=== PATIENT | male | born 1960 | race Caucasian/White ===

== ENCOUNTER 2023-12-29 13:05 | Outpatient (AMB) | payer MEDICARE, MEDICAID, SELFPAY ==
[2023-12-29 13:16] VITALS: BP 122/73; PULSE 109; RESP 16; O2SAT 97; BMI 32.6
--- NOTE | 2023-12-29 13:16 | A.OFFVIS_ITS ---
Intake Vital Signs 12/29/23 13:16 Height 5 ft 10 in Weight 227 lb BMI 32.6 BP 122/73 Blood Pressure Location Lt brachial Position Sitting Respiration 16 Pulse 109 H Pulse Source Pulse Oximeter Pulse Oximetry (%) 97 Oxygen Delivery Method Room Air Intake Visit Reasons: Bilateral lower extremity pain & neuropathy Allergies No Known Allergies Allergy (Verified 12/29/23 13:12) HPI HPI Comments History of Present Illness Details Reinaldo is a very pleasant 63-year-old male who presents the office today for evaluation management of his chronic painful bilateral diabetic peripheral neuropathy. He reports suffering with this pain for many years. He was diagnosed as diabetic in his 20s, currently insulin-dependent with an insulin pump. Most recent A1c was 7.4. He is followed by Dr. Antunez for endocrinology. Patient has podiatry that he sees for diabetic foot care on a routine basis. Pain burning, hot, painful, stinging to both feet starting at the toes and now traveling to the ankles. He reports he used to be on chronic opioids for this but has since weaned off. Currently taking duloxetine and Lyrica with minimal improvement of his symptoms. P Pain today is rated as an 8/10, constant throughout the day. In terms of muscle damage condition is described as aching, hot, burning, stabbing, sharp, tingling, pins and needles, shooting, dull, tiring, exhausting, shocking, numb, throbbing. Pain is negatively impacting patient's enjoyment of life, general activity, mood. Past medical history is significant for diabetic neuropathy, insulin-dependent diabetes with insulin pump, orthostatic hypotension, gastroparesis and major depression. Patient does report that he has difficulty with short-term memory, he is currently taking medications for his memory. He also reports having a tremor and is giving medications for Parkinson's but states that he has never been formally diagnosed with Parkinson's. Was told in the past that tremor and memory issues could be secondary to medication side effects. He has implantable device for monitoring his heart, denies pacemaker or defibrillator. Reports his cardiac monitoring device is MRI compatible. 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 nerve due to type 1 diabetes mellitus Polyneuropathy due to type 2 diabetes mellitus Gastroparesis Testicular hypofunction Multiple complications of type 1 diabetes mellitus Diabetic nephropathy Major depression in partial remission Orthostatic hypotension Type 1 diabetes mellitus with hypoglycemia without coma Polyneuropathy in diseases classified elsewhere Motion sickness Review of Systems Const All systems reviewed & are unremarkable except as noted in HPI and below Physical Exam Vital Signs: Last Vital Signs Pulse 109 H 12/29/23 13:16 Resp 16 12/29/23 13:16 BP 122/73 12/29/23 13:16 Pulse Ox 97 12/29/23 13:16 Oxygen Delivery Method Room Air 12/29/23 13:16 BMI result Body Mass Index 32.6 General: awake, alert, oriented. Answers questions appropriately. Fully engaged in examination. Skin: warm, dry, intact. Bilateral feet: Plantar calluses to great toes and heels. Skin intact without wounds, blisters, sores, lesions or rashes. HEENT: Normocephalic. Hearing intact. Cardiac: External chest normal in appearance. Respiratory: No cough, audible wheezing or stridor. Abdomen: without gross distension. MS: No obvious swelling or deformities. Neurological: Oriented to person, place, time and situation. Thought process intact. No gait abnormalities appreciated. Bilateral feet: Light touch sensation equal and intact. Psychiatric: Appropriate mood and affect. Good judgment and insight. Assessment & Plan Assessment & Plan (1) Diabetic neuropathy: Code(s): E11.40 - Type 2 diabetes mellitus with diabetic neuropathy, unspecified Plan Reinaldo is a very pleasant 63-year-old male who presented to the office today for evaluation and management of his chronic painful bilateral diabetic ne uropathy. Patient has exhausted conservative therapy including [id number]-irktvon medications, prescription medications including opioids and Lyrica. Discussed options for treatment including Qutenza topical capsaicin versus Nevro spinal cord stimulator. Pamphlets provided to patient. Will submit PA for Qutenza topical capsaicin, patient aware that he will get call to schedule appointment once approved through the insurance. If patient does not get relief with topical capsaicin in office applications will plan for Nevro spinal cord stimulation trial. Patient aware that this will require mental health clearance through [employer] point. [employer] pamphlet was given to patient. All questions and concerns were answered, patient agrees with the plan. Follow- up Qutenza application, sooner if needed Coding Level of Care Code New Pt Level 4 (82419) Diagnoses Diabetic neuropathy E11.40
== END 2023-12-29 14:08 | disposition home or self-care (01) ==
PROVIDERS: PCP Internal Medicine; Visit Provider Registered Nurse Emergency
DX: E11.40 Type 2 diabetes mellitus with diabetic neuropathy, unspecified (principal)
CPT/HCPCS: 99204

== ENCOUNTER → 2023-12-29 13:05 | Outpatient (BNVA) | payer MEDICARE, MEDICAID, SELFPAY | PROVIDERS: PCP Internal Medicine; Visit Provider Registered Nurse Emergency | DX: E11.40 Type 2 diabetes mellitus with diabetic neuropathy, unspecified (principal); Z79.4 Long term (current) use of insulin; Z96.41 Presence of insulin pump (external) (internal) | CPT/HCPCS: 99202 ==